=== PATIENT | male | born 1965 | race Caucasian/White ===

== ENCOUNTER 2016-06-04 07:53 | Outpatient (CLI) | payer OTHER ==
[~2016-06-04 07:53] MED LIST: COUMADIN5 MG PO; LISINOPRIL10 MG PO; WARFARIN SODIUM5 MG PO
== END 2016-06-04 23:00 ==
LOC: LAB SRH 07:53
DX: Z51.81 Encounter for therapeutic drug level monitoring (principal); Z79.01 Long term (current) use of anticoagulants
CPT/HCPCS: 90074; 94060

== ENCOUNTER 2016-07-06 14:40 | Outpatient (CLI) | payer OTHER ==
--- NOTE | 2016-07-06 16:37 | DIAGNOSTIC IMAGING REPORT ---
PROCEDURE: MR LUMBAR SPINE W/O CONTRAST INDICATION: LUMBAR RADICULOPATHY TECHNIQUE: Noncontrast T1, T2, and STIR sagittal images. T1 and T2 axial images. COMPARISON: None. FINDINGS: L1-2: Normal. L2-3: Normal. L3-4: Normal. L4-5: There is mild annular bulge at this level. L5-S1: There is a large herniated nucleus pulposus on the right. This is distorting and displacing the thecal sac. IMPRESSION: 1. Large herniated nucleus pulposus L5-S1 on the right.
== END 2016-07-06 23:00 ==
LOC: MRI SRH 14:40
DX: M51.27 Other intervertebral disc displacement, lumbosacral region (principal)